=== PATIENT | female | born 1970 | race Two or more races ===

== ENCOUNTER 2023-03-07 17:14 | Emergency (ER) | payer OTHER ==
[~2023-03-07] VITALS: Ht 180.3 cm; Wt 87.5 kg
[~2023-03-07 17:14] MED LIST: FLUCONAZOLE150 MG PO
[2023-03-07 20:37] LABS: HEMATOCRIT 36.8 % (36.0-45.00); HEMOGLOBIN 12.5 g/dL (12.0-15.00); MEAN CELL VOLUME 95.3 fL (80.00-100.00); MEAN CORPUSCULAR HEMOGLOBIN 32.4 pg (27.00-32.0); PLATELET COUNT 247 K/uL (150-450); RED BLOOD COUNT 3.86 M/uL (4.00-6.00); RED CELL DISTRIBUTION WIDTH 13.1 % (11.5-14.5)
[2023-03-07 20:45] LABS: URINE APPEARANCE Clear; URINE BILIRRUBIN Negative (NEGATIVE); URINE BLOOD Small; URINE COLOR Yellow; URINE GLUCOSE Negative (NEGATIVE); URINE LEUKOCYTE Small; URINE NITRATE Positive; URINE PROTEIN Negative (NEGATIVE); URINE UROBILINOGEN 0.2 E.U./dl
[2023-03-07 20:49] LABS: URINE EPITHELIAL CELLS 16.3 uL (0.0-38.8); URINE RBC 20.9 uL (0.0-20.8); URINE WBC 81.7 uL (0.0-23.2)
[2023-03-07 20:55] LABS: URINE BACTERIA > 9821.2 uL (0.0-1933)
[2023-03-07] MEDS ORDERED: OSEL75CA PO (22:34)
[2023-03-07] MEDS ORDERED: IPRATROPIU0.2 MG/1 M IH (22:34)
[2023-03-07] MEDS ORDERED: MEDROLPACK PO (22:34)
[2023-03-07] MEDS ORDERED: LEVOFLOXACIN750 MG PO (22:34)
[2023-03-07] MEDS ORDERED: XOPENEX CO1.25 MG/0. IH (22:34)
== END 2023-03-07 23:00 | disposition home or self-care (01) ==
LOC: ER 17:14
PROVIDERS: Nurse Practitioner Family
DX: J10.1 Influenza due to other identified influenza virus with other respiratory manifestations (principal); J45.909 Unspecified asthma, uncomplicated; Z20.822 Contact with and (suspected) exposure to COVID-19; Z88.8 Allergy status to other drugs, medicaments and biological substances; Z91.041 Radiographic dye allergy status